=== PATIENT | female | born 1975 | race Two or more races ===

== ENCOUNTER 2020-12-15 20:39 | Emergency (ER) | payer OTHER, SELFPAY ==
--- NOTE | ~2020-12-15 | XR_ITS ---
EXAMINATION: XR SHOULDER, RIGHT CLINICAL INFORMATION: Pain. COMPARISON: None TECHNIQUE: Three views of the right shoulder. FINDINGS: No acute fractures or malalignment. The humeral head is well-seated in the glenoid. Normal appearance of the acromioclavicular joint and coracoid process. On a single view there is a small calcification adjacent to the greater trochanter of the humerus most consistent with calcific tendinosis. Visualized lungs are clear. The visualized right-sided clavicle and right-sided ribs are unremarkable. XR/XR shoulder RT min 2V IMPRESSION: No acute fractures or malalignment. Small focus of calcific tendinosis adjacent to the greater trochanter of the humerus.
[2020-12-15 21:39] VITALS: BP 149/80; PULSE 86; RESP 12; TEMP 36.9; O2SAT 97; BMI 32.1
--- NOTE | 2020-12-15 22:28 | ED_ITS ---
HPI - Extremity Problem General Chief complaint: Extremity Problem Stated complaint: shoulder pain Time Seen by Provider: 12/15/20 22:23 Source: patient and family Mode of arrival: ambulatory Limitations: no limitations History of Present Illness MD Complaint: extremity pain (Right shoulder) Onset (ago): week(s) (Two weeks worse today) Pain Consistency: constant Location: right and upper extremity (Shoulder) Severity scale (1-10): >10 Quality: aching and constant Radiation: distal Relieving factors: nothing Exacerbating factors: range of motion and palpation Associated symptoms: denies other symptoms Related Data Previous Rx's Medication Instructions Recorded acetaminophen 500 mg tablet 1,000 mg PO QID PRN #14 tab 12/15/20 (Tylenol Extra Strength) cyclobenzaprine 10 mg tablet 10 mg PO Q8H PRN #14 tab 12/15/20 oxycodone 5 mg tablet 5 mg PO Q6H PRN #14 tab 12/15/20 Allergies Allergy/AdvReac Type Severity Reaction Status Date / Time ibuprofen [From MOTRIN] Allergy Unknown HIVES Verified 12/15/20 21:39 morphine [MORPHINE] Allergy Unknown HIVES Verified 12/15/20 21:39 terbutaline [Terbutaline] Allergy Unknown ANAPHYLAXIS Verified 12/15/20 21:39 From TORADOL Allergy Unknown UNKNOWN Uncoded 11/07/19 18:05 Review of Systems Review of Systems: Constitutional : No Weight loss, No Fever, No Chills, No Night Sweats, No Fatigue, No Malaise ENT/Mouth : No Hearing loss, No Ear Pain, No Nasal Congestion, No Sinus Pain, No Hoarseness, No sore throat, No Rhinorrhea, No Swallowing Difficulty Eyes: No Eye Pain, No Swelling, No Redness, No Foreign Body, No Discharge, No Vision Changes Cardiovascular : No Chest Pain, No SOB, No Dyspnea on Exertion, No Orthopnea, No Edema, No Palpitations Respiratory : No Cough, No Sputum, No Wheezing, No Smoke Exposure, No Dyspnea Gastrointestinal : No Nausea, No Vomiting, No Diarrhea, No Constipation, No abdominal Pain, No Hematochezia, No Melena Genitourinary : no irregular bleeding, No Dysuria, No Urinary Frequency, No Hematuria, No Urinary Incontinence, No Urgency, No Flank Pain, No Urinary Flow Changes, No Hesitancy Musculoskeletal : + right shoulder joint pain, No Myalgias, No Joint Swelling Skin : No Skin Lesions, No rash Neuro : No Weakness, No Numbness, No Paresthesias, No Loss of Consciousness, No Dizziness, No Headache Psych : No Anxiety/Panic, No Depression, No SI/HI/AH/VH, No Social Issues, Heme/Lymph: No Bruising, No Bleeding,No Lymphadenopathy Endocrine : No Polyuria, No Polydipsia, No Temperature Intolerance Yes all other systems are reviewed and are negative [facility] Past Medical History Attestation statement: The following information was validated with the patient. Medical History Hypothyroid Social History Social History Advance Directives: No Physical Exam Vital Signs: Vital Signs: Last Vital Signs Temp 98.5 F 12/15/20 21:39 Pulse 86 12/15/20 21:39 Resp 12 12/15/20 21:39 BP 149/80 H 12/15/20 21:39 Pulse Ox 97 12/15/20 21:39 Body Mass Index 32.1 vital signs have been reviewed as normal and appeared to be correct. Blood pressure hypertensive 149/80. Heart rate normal. Respiration rate normal. Temperature normal. Oxygen saturation normal. Appearance: Alert. Oriented X3. No acute distress. Head: Normal external exam. Normocephalic. Atraumatic. Eyes: PERRLA. EOMI. Conjunctiva and sclera normal. Eyelids normal. ENT: Pharynx normal. Uvula midline. Moist mucous membranes. Neck: Normal inspection. Neck supple. FROM. CVS: Normal heart rate and rhythm. Respiratory: No respiratory distress. Painless inspiration. Skin: Skin warm and dry. Normal skin color. Normal skin turgor. No rashes/lesions/lacerations noted. Extremities: Patient with tenderness palpation to right shoulder at the anterior aspect with limited range of motion for flexion/extension/abduction/internal medial rotation and external lateral rotation. Although no obvious ligamentous injury. No upper extremity edema noted. Otherwise all other Extremities exhibit normal range of motion and nontender. Neuro: Oriented X 3. No motor deficit. No sensory deficit. Reflexes normal. Normal steady gait. No focal neuro deficits noted. Vascular: + radial pulses/+ 2 distal pedal pulses/+2 dorsalis pedis b/l. Normal cap refill. No cyanosis noted to upper extremity nails and lower extremity toes nails. Course Course Course Narrative: 45-year-old female presenting to the ED with right shoulder pain with limited range of motion for the past 2 weeks atraumatic. She denies any other symptoms related to this. X-ray obtained and revealed No acute fractures or malalignment. Small focus of calcific tendinosis adjacent to the greater trochanter of the humerus. Therefore will treat symptomatic and placed in a sling and referred to Orthope dic and also explain to her that she should follow-up with her primary care provider for physical therapy referral and to return if any new or worsening symptoms. Patient understands agrees with this plan. MDM - Extremity (Nontraumatic) Medical Records Attestation: I reviewed the patient's medical records. Imaging Data Right shoulder x-ray: Attestation: I personally reviewed and interpreted this imaging study as follows: Radiologist's impression: FINDINGS: No acute fractures or malalignment. The humeral head is well-seated in the glenoid. Normal appearance of the acromioclavicular joint and coracoid process. On a single view there is a small calcification adjacent to the greater trochanter of the humerus most consistent with calcific tendinosis. Visualized lungs are clear. The visualized right-sided clavicle and right-sided ribs are unremarkable.? XR/XR shoulder RT min 2V IMPRESSION: No acute fractures or malalignment. Small focus of calcific tendinosis adjacent to the greater trochanter of the humerus. Procedures Orthopedic Splinting/Casting Injury #1: Side: right Upper Extremity Injury Location: shoulder Upper Extremity Immobilizer: sling/shoulder immobilizer Discharge Plan Discharge Clinical Impression: Calcifying tendinitis of shoulder Patient Disposition: Home, Self-Care Instructions: Calcific Tendinitis (ED), Shoulder Immobilizer (ED) Prescriptions: New oxycodone 5 mg tablet 5 mg PO Q6H PRN (Reason: pain) Qty: 14 RF: 0 acetaminophen [Tylenol Extra Strength] 500 mg tablet 1,000 mg PO QID PRN (Reason: fever or pain) Qty: 14 RF: 0 cyclobenzaprine 10 mg tablet 10 mg PO Q8H PRN (Reason: Muscle spasm) Qty: 14 RF: 0 Referrals: Darrian Starks MD [Physician] - 12/16/20 (Call tomorrow to make a follow-up appointment within the next 2-3 weeks) PhysicianKasi [Primary Care Provider] - 2 days (Follow-up with her PCP for physical therapy referral) Stand Alone Forms: Work/School Release Print Language: Monegasque
[2020-12-15] MEDS: Acetaminophen 325 MG TABLET 975 MG PO (22:58)
== END 2020-12-15 23:05 | disposition home or self-care (01) ==
PROVIDERS: Emergency Provider Internal Medicine
DX: M75.31 Calcific tendinitis of right shoulder (principal); M25.511 Pain in right shoulder
CPT/HCPCS: 73030; 99283; 99284